=== PATIENT | male | born 1975 | race Caucasian/White ===

== ENCOUNTER 2017-04-11 13:52 | Inpatient (IN) | payer OTHER, MEDICAID ==
[~2017-04-11] VITALS: Ht 165.1 cm; Wt 68.0 kg
[2017-04-11] MEDS ORDERED: SODIUM CHLORIDE 0.9% 1,000 ML IV ONE (14:09)
[2017-04-11] MEDS ORDERED: KETOROLAC 30MG/ML VIAL IV STA (14:09)
[2017-04-11] MEDS ORDERED: ONDANSETRON HCL 4MG/2ML VIAL IV STA (14:09)
[2017-04-11 14:29] LABS: BASOPHILS % 0.8 % (0.0-2.0); EOSINOPHILS % 0.7 % (0.0-5.0); HEMATOCRIT. 40.6 % (42.0-52.0); HEMOGLOBIN. 13.3 g/dL (14.0-18.0); LYMPHOCYTES % 28.1 % (20.0-50.0); MEAN CORPUSCULAR HEMOGLOBIN 26.7 pg (28.0-32.0); MEAN CORPUSCULAR VOLUME 81.9 fL (80.0-94.0); MEAN PLATELET VOLUME 7.4 fl (7.4-10.4); MONOCYTES % 6.9 % (2.0-8.0); NEUTROPHILS % 63.5 % (40.0-76.0); PLATELET 294 x1000/uL (130-400); RED BLOOD CELL COUNT 4.96 mill/uL (4.7-6.1); RED CELL DISTRIBUTION WIDTH 14.9 % (11.6-14.6)
[2017-04-11 14:35] LABS: CHLORIDE 93 mEq/L (98-107)
[2017-04-11 14:41] LABS: CARBON DIOXIDE 25 mEq/L (21-32); ETHANOL BLOOD < 10 mg/dL
[2017-04-11 14:50] LABS: CLARITY URINE CLEAR (CLEAR); COLOR URINE YELLOW (YELLOW); GLUCOSE URINE 3+ (NEGATIVE); KETONES URINE 1+ (NEGATIVE); LEUKOCYTE ESTERASE URINE NEGATIVE (NEGATIVE); NITRITE URINE NEGATIVE (NEGATIVE); OCCULT BLOOD URINE NEGATIVE (NEGATIVE); PROTEIN URINE NEGATIVE (NEGATIVE); SPECIFIC GRAVITY URINE 1.037 (1.005-1.030); UROBILINOGEN URINE 0.2 E.U./dL (0.2-1.0)
[2017-04-11 15:11] LABS: *AMPHETAMINES SCREEN URINE NEGATIVE (NEGATIVE); *BARBITURATES SCREEN URINE NEGATIVE (NEGATIVE); *BENZODIAZEPINES SCREEN URINE NEGATIVE (NEGATIVE); *COCAINE SCREEN URINE NEGATIVE (NEGATIVE); CANNABINOID URINE SCREEN NEGATIVE (NEGATIVE); METHADONE URINE SCREEN NEGATIVE (NEGATIVE); OPIATES URINE SCREEN NEGATIVE (NEGATIVE); PHENCYCLIDINE URINE SCREEN NEGATIVE (NEGATIVE)
[2017-04-11 15:25] LABS: BG BASE EXCESS -2.3 mmol/L (-2.0-2.0); BG CARBOXYHEMOGLOBIN 0.3 % (0.5-1.5); BG DEOXYHEMOGLOBIN 3.6 % (0.0-5.0); BG FRACTION INSPIRED OXYGEN 21; BG HCO3 ACT 22.2 mmol/L (22.0-26.0); BG METHEMOGLOBIN 0.1 % (0.0-1.5); BG OXYGEN SATURATION 96.4 % (92.0-98.5); BG PCO2 37.6 mmHg (35.0-45.0); BG PH 7.389 (7.350-7.450); BG PO2 84.5 mmHg (75.0-100.0); BG SAMPLE SITE RIGHT RADIAL; BG TOTAL HEMOGLOBIN 14.1 g/dL (12.0-18.0); BG VENT MODE ROOM AIR
[2017-04-11] MEDS ORDERED: INSULIN REGULAR (HUMULIN R) UD 100 UNITS/ML SYR IV ONE (15:45)
[2017-04-11] MEDS ORDERED: INSULIN REGULAR (HUMULIN R) 300UNITS/3ML SUBCUT NR (16:30)
[2017-04-11] MEDS ORDERED: INSULIN REGULAR (HUMULIN R) 300UNITS/3ML IV NR (16:32)
[2017-04-11] MEDS ORDERED: NITROGLYCERIN 0.4MG TABLET SL SL PRN (22:00)
[2017-04-11] MEDS ORDERED: IPRATROPIUM/ALBUTEROL 0.5-3(2.5)MG/3ML NEB INH PRN (22:00)
[2017-04-11] MEDS ORDERED: GUAIFENESIN 200MG/10ML SUGAR FREE UDC PO PRN (22:00)
[2017-04-11] MEDS ORDERED: DIPHENHYDRAMINE 50MG/ML VIAL IV PRN (22:00)
[2017-04-11] MEDS ORDERED: DEXTROSE 50% WATER 50ML SYRINGE IV PRN (22:00)
[2017-04-11] MEDS ORDERED: ONDANSETRON HCL 4MG/2ML VIAL IV PRN (22:00)
[2017-04-11] MEDS ORDERED: ACETAMINOPHEN 325MG TABLET PO PRN (22:00)
[2017-04-11] MEDS ORDERED: KETOROLAC 15MG/ML VIAL IV PRN (22:00)
[2017-04-11] MEDS ORDERED: ZOLPIDEM TARTRATE 5MG TABLET PO PRN (22:00)
[2017-04-11] MEDS ORDERED: NA PHOS,M-B/NA PHOS,DI-BA ENEMA 118ML PR PRN (22:00)
[2017-04-11] MEDS ORDERED: CLONIDINE 0.1MG TABLET PO PRN (22:00)
[2017-04-11] MEDS ORDERED: DOCUSATE SODIUM 100MG CAPSULE PO PRN (22:00)
[2017-04-11] MEDS ORDERED: MAGNESIUM/ALUMINUM HYDROXIDE/SIMETHICONE 30ML UDC PO PRN (22:00)
[2017-04-11] MEDS ORDERED: LORAZEPAM 2MG/ML CPJ IV PRN (22:00)
[2017-04-11 22:25] VITALS: BP 99/60
[2017-04-11] MEDS ORDERED: ENOXAPARIN 40MG/0.4ML SYR SUBCUT SCH (22:30)
[2017-04-11] MEDS ORDERED: SODIUM CHLORIDE 0.9% 1,000 ML IV SCH (22:30)
[2017-04-11] MEDS ORDERED: INSULIN DETEMIR UD 100 UNITS/ML SYR SUBCUT SCH (23:30)
[2017-04-12] VITALS: BP 95/55
[2017-04-12 04:00] VITALS: BP 97/59
[2017-04-12] MEDS ORDERED: INSULIN LISPRO 100 UNITS/ML SUBCUT SCH ×2 (07:20→07:50)
[2017-04-12] MEDS ORDERED: BLOOD SUGAR DIAGNOSTIC STRIP TEST SCH (07:20)
[2017-04-12 08:00] VITALS: BP 94/49
[2017-04-12] MEDS ORDERED: PANTOPRAZOLE SODIUM 40 MG/VIAL IV SCH (09:00)
[2017-04-12] MEDS ORDERED: ASPIRIN 325MG EC TABLET PO SCH (09:00)
[2017-04-12] MEDS ORDERED: INSLAN SQ (09:29)
[2017-04-12] MEDS ORDERED: INSLIS SQ (09:29)
== END 2017-04-12 12:10 | disposition home or self-care (01) | DRG 420 ==
LOC: ER 13:53 → 6EST 16:21 → ENRESERV 21:02
PROVIDERS: ADMIT Internal Medicine; ATTEND Internal Medicine
DX: E11.65 Type 2 diabetes mellitus with hyperglycemia (principal); E44.0 Moderate protein-calorie malnutrition; E87.1 Hypo-osmolality and hyponatremia; Z91.14 Patient's other noncompliance with medication regimen; Z68.25 Body mass index [BMI] 25.0-25.9, adult
CPT/HCPCS: 36415; 36600; 70450; 71010; 80053; 80061; 80305; 81001; 82375; 82805; 82962; 83036; 85025; 85610; 93005; 96361; 96374; 96375; 99285; C9113; G0482; J1650; J1815; J1885; J2405; J7030

== ENCOUNTER 2018-10-25 19:38 | Inpatient (IN) | payer MEDICAID, OTHER ==
[~2018-10-25] VITALS: Ht 165.1 cm; Wt 54.4 kg
[2018-10-25] MEDS ORDERED: SODIUM CHLORIDE 0.9% 1,000 ML IV ONE ×3 (20:00→22:15)
[2018-10-25] MEDS ORDERED: ONDANSETRON HCL 4MG/2ML INJ IV ONE (21:30)
[2018-10-25 21:57] LABS: HEMATOCRIT. 49.4 % (42.0-52.0); HEMOGLOBIN. 15.2 g/dL (14.0-18.0); MEAN CORPUSCULAR HEMOGLOBIN 27.6 pg (28.0-32.0); MEAN PLATELET VOLUME 7.9 fl (7.4-10.4); PLATELET 447 x1000/uL (130-400); RED BLOOD CELL COUNT 5.49 mill/uL (4.7-6.1); RED CELL DISTRIBUTION WIDTH 14.2 % (11.6-14.6)
[2018-10-25 22:01] LABS: BG CARBOXYHEMOGLOBIN 0.9 % (0.5-1.5); BG DEOXYHEMOGLOBIN 2.1 % (0.0-5.0); BG FRACTION INSPIRED OXYGEN 21; BG HCO3 ACT 3.8 mmol/L (22.0-26.0); BG METHEMOGLOBIN 0.5 % (0.0-1.5); BG OXYGEN SATURATION 97.9 % (92.0-98.5); BG OXYHEMOGLOBIN 96.5 % (94.0-97.0); BG PCO2 14.4 mmHg (35.0-45.0); BG PH 7.036 (7.350-7.450); BG PO2 131.4 mmHg (75.0-100.0); BG SAMPLE SITE RIGHT BRACHIAL; BG TOTAL HEMOGLOBIN 15.3 g/dL (12.0-18.0); BG VENT MODE ROOM AIR
[2018-10-25 22:02] LABS: CHLORIDE 102 mEq/L (98-107)
[2018-10-25 22:04] LABS: PROTHROMBIN TIME 9.7 sec (9.1-11.1)
[2018-10-25] MEDS ORDERED: INSULIN REGULAR (DRIP) 100 UNITS in SODIUM CHLORIDE 0.9% 100 ML IV ONE ×2 (22:15→22:45)
[2018-10-25] MEDS ORDERED: PIPERACILLIN/TAZ 3.375G PREMIX 50 ML IV ONE (22:15)
[2018-10-25] MEDS ORDERED: VANCOMYCIN 1 G PREMIX 200 ML IV ONE (22:15)
[2018-10-25 22:20] LABS: PLATELET ESTIMATE INCREASED
[2018-10-25 22:34] LABS: BETA HYDROXYBUTYRATE 16.1 mMol/L (0.0-0.3)
[2018-10-25] MEDS ORDERED: ONDANSETRON HCL 4MG/2ML INJ IV PRN (23:45)
[2018-10-25] MEDS ORDERED: MAGNESIUM/ALUMINUM HYDROXIDE/SIMETHICONE 30ML UDC PO PRN (23:45)
[2018-10-25] MEDS ORDERED: INSULIN REGULAR (DRIP) 100 UNITS in SODIUM CHLORIDE 0.9% 100 ML IV SCH (23:45)
[2018-10-25] MEDS ORDERED: CLONIDINE 0.1MG TABLET PO PRN (23:45)
[2018-10-25] MEDS ORDERED: ACETAMINOPHEN 325MG TABLET PO PRN (23:45)
[2018-10-26] VITALS (33 sets, daily range): BP systolic 93–131; BP diastolic 38–79
[2018-10-26] MEDS ORDERED: SODIUM BICARBONATE 8.4% 1 MEQ/ML 50ML SYR IV NR (00:15)
[2018-10-26] MEDS ORDERED: DEXTROSE 50% WATER 50ML SYRINGE IV PRN ×3 (03:00→11:45)
[2018-10-26] MEDS: INSULIN LISPRO (HIGH DOSE) 100 UNITS/ML SUBCUT SCH ×2 (03:20→09:19)
[2018-10-26 05:31] LABS: BASOPHILS % 0.3 % (0.0-2.0); HEMATOCRIT. 40.2 % (42.0-52.0); LYMPHOCYTES % 15.3 % (20.0-50.0); MEAN CORPUSCULAR HEMOGLOBIN 27.6 pg (28.0-32.0); MEAN CORPUSCULAR VOLUME 85.7 fL (80.0-94.0); MEAN PLATELET VOLUME 7.3 fl (7.4-10.4); MONOCYTES % 5.7 % (2.0-8.0); NEUTROPHILS % 78.7 % (40.0-76.0); PLATELET 392 x1000/uL (130-400); RED CELL DISTRIBUTION WIDTH 13.9 % (11.6-14.6)
[2018-10-26 05:32] LABS: CHLORIDE 120 mEq/L (98-107)
[2018-10-26] MEDS ORDERED: SODIUM CHLORIDE 0.9% 1,000 ML IV SCH (05:45)
[2018-10-26] MEDS ORDERED: BLOOD SUGAR DIAGNOSTIC STRIP TEST SCH (09:00)
[2018-10-26] MEDS ORDERED: HYDROMORPHONE HCL/PF 2MG/ML CPJ IV PRN (10:20)
[2018-10-26] MEDS ORDERED: INSULIN REGULAR (DRIP) 100 UNITS in SODIUM CHLORIDE 0.9% 99 ML IV PRN (11:30)
[2018-10-26] MEDS: BLOOD SUGAR DIAGNOSTIC STRIP TEST SCH ×10 (11:48→23:46)
[2018-10-26] MEDS: INSULIN REGULAR (DRIP) 100 UNITS in SODIUM CHLORIDE 0.9% 100 ML IV SCH ×2 (13:04→22:20)
[2018-10-26] MEDS: DEXTROSE 5% WATER 1,000 ML IV SCH ×2 (13:05→22:20)
[2018-10-26 20:00] LABS: CHLORIDE 113 mEq/L (98-107)
[2018-10-26 20:05] LABS: PHOSPHORUS 1.4 mg/dL (2.5-4.9)
[2018-10-27] VITALS (28 sets, daily range): BP systolic 89–111; BP diastolic 42–72
[2018-10-27] MEDS: BLOOD SUGAR DIAGNOSTIC STRIP TEST SCH ×18 (00:58→20:36)
[2018-10-27 01:35] LABS: CHLORIDE 109 mEq/L (98-107)
[2018-10-27 05:03] LABS: HEMATOCRIT. 35.6 % (42.0-52.0); HEMOGLOBIN. 11.6 g/dL (14.0-18.0); MEAN CORPUSCULAR HEMOGLOBIN 27.4 pg (28.0-32.0); MEAN CORPUSCULAR VOLUME 83.9 fL (80.0-94.0); PLATELET 305 x1000/uL (130-400); RED BLOOD CELL COUNT 4.24 mill/uL (4.7-6.1); RED CELL DISTRIBUTION WIDTH 13.9 % (11.6-14.6)
[2018-10-27 05:09] LABS: CHLORIDE 108 mEq/L (98-107)
[2018-10-27 05:25] LABS: BETA HYDROXYBUTYRATE 0.1 mMol/L (0.0-0.3)
[2018-10-27 08:47] LABS: PLATELET ESTIMATE NORMAL
[2018-10-27] MEDS ORDERED: DEXTROSE 50% WATER 50ML SYRINGE IV PRN (13:00)
[2018-10-27] MEDS: INSULIN LISPRO 100 UNITS/ML SUBCUT SCH ×3 (13:20→20:36)
[2018-10-27 13:53] LABS: CHLORIDE 108 mEq/L (98-107)
[2018-10-27] MEDS ORDERED: POTASSIUM PHOS,M-BASIC-D-BASIC 30 MMOL in DEXT 5% WATER 500 ML IV NR (14:00)
[2018-10-27] MEDS ORDERED: INSULIN GLARGINE UD 100 UNITS/ML SYR SUBCUT NR (14:00)
[2018-10-28] VITALS: BP 90/44
[2018-10-28 01:54] LABS: CHLORIDE 102 mEq/L (98-107)
[2018-10-28 04:00] VITALS: BP 100/52
[2018-10-28 07:11] LABS: CHLORIDE 104 mEq/L (98-107)
[2018-10-28] MEDS: BLOOD SUGAR DIAGNOSTIC STRIP TEST SCH ×4 (07:21→21:29)
[2018-10-28 08:00] VITALS: BP 99/60
[2018-10-28] MEDS: INSULIN LISPRO 100 UNITS/ML SUBCUT SCH ×4 (08:02→21:37)
[2018-10-28] MEDS: INSULIN GLARGINE UD 100 UNITS/ML SYR SUBCUT SCH (10:05)
[2018-10-28 12:00] VITALS: BP 90/55
[2018-10-28 16:00] VITALS: BP 93/54
[2018-10-28 20:00] VITALS: BP 94/55
[2018-10-28 21:33] LABS: CHLORIDE 100 mEq/L (98-107)
[2018-10-29] VITALS: BP 87/54
[2018-10-29 00:21] LABS: CHLORIDE 103 mEq/L (98-107)
[2018-10-29 04:28] VITALS: BP 99/64
[2018-10-29] MEDS: BLOOD SUGAR DIAGNOSTIC STRIP TEST SCH (06:19)
[2018-10-29] MEDS: INSULIN LISPRO 100 UNITS/ML SUBCUT SCH (06:29)
[2018-10-29 08:00] VITALS: BP 89/50
[2018-10-29] MEDS: INSULIN GLARGINE UD 100 UNITS/ML SYR SUBCUT SCH (09:49)
[2018-10-29 11:16] VITALS: BP 90/50
== END 2018-10-29 12:10 | disposition home or self-care (01) | DRG 420 ==
LOC: ER 19:38 → EDBEDREQTM 21:26 → EDBEDREQSVC 21:26 → EDBEDREQ 22:05 → EDBEDREQTM 22:05 → ENRESERV 10-26 08:33 → CVICU 10-26 10:10 → 6EST 10-27 17:18
PROVIDERS: ADMIT Hospitalist; ATTEND Hospitalist
DX: E11.10 Type 2 diabetes mellitus with ketoacidosis without coma (principal); Z59.0 Homelessness
CPT/HCPCS: 36415; 36600; 71045; 80048; 82010; 82375; 82805; 82962; 83036; 83735; 84100; 85007; 85027; 93005; 93970; 96365; 96375; 99291; J1170; J1815; J2405; J2543; J3370; J3490; J7030; J7042; J7050; J7060; J7070